=== PATIENT | male | born 1990 | race Caucasian/White ===

== ENCOUNTER 2017-10-31 16:49 | Inpatient (IN) | payer OTHER ==
[2017-10-31 18:04] VITALS: BMI 24.7
--- NOTE | 2017-10-31 19:19 | HP ---
COWS - Scale Resting Pulse: 2= [place] 101-120 Sweatin= Chills/Flushing Restless Observation: 1= Difficult to Sit Still Pupil Size: 1= Pupils >than Normal Bone or Joint Aches: 1= Mild Discomfort Runny Nose/ Eye Tearin= Runny Nose/Eyes GI Upset > 30mins: 1= Stomach Cramp Tremor Observation: 1= Tremor [place], Not Seen Yawning Observation: 1= 1-2x During Session Anxiety or Irritability: 2=Irritable/Anxious Goose Flesh Skin: 0=Smooth Skin COWS Score: 13 Admission [facility] Chief Complaint: opioid withdrawal symptoms Allergies/Adverse Reactions: Allergies Allergy/AdvReac Type Severity Reaction Status Date / Time Penicillins Allergy Mild Verified 10/31/17 18:45 History of Present Illness: 27 yo male with hx of nicotine and heroin dependence is here seeking detox. Last detox [facility] September 2015. Reports in April 2017 was diagnosed with lung cancer, patient underwent partial right lung removal on September 2017. Longest period of sobriety approximately 2 years. PMHX: lung CA, and depression. Denies suicidal / homicidal ideation or hx of suicide attempt. Denies hx of seizures, black outs or overdose. Exam Limitations: No Limitations - Ebola screening Have you traveled outside of the country in the last 21 days: No Have you had contact with anyone from an Ebola affected area: No Have you been sick,other than usual withdrawal symptoms: No Do you have a fever: No - Review of Systems Constitutional: Chills, Changes in sleep EENT: reports: No Symptoms Reported Respiratory: reports: No Symptoms reported Cardiac: reports: Chest Pain (Patient had surgery to lung rumor removal, psot surgical pain) GI: reports: Poor Fluid Intake, Abdominal cramping : reports: No Symptoms Reported Musculoskeletal: reports: Back Pain, Joint Pain Integumentary: reports: No Symptoms Reported Neuro: reports: No Symptoms reported Endocrine: reports: No Symptoms Reported Hematology: reports: No Symptoms Reported Psychiatric: reports: Orientated x3, Depressed Other Systems: Reviewed and Negative Patient History - Patient Medical History Hx Anemia: No Hx Asthma: No Hx Chronic Obstructive Pulmonary Disease (COPD): No Hx Cancer: Yes (right lung cancer with partial lung removal September 2017) Hx Cardiac Disorders: No Hx Congestive Heart Failure: No Hx Hypertension: No Hx Hypercholesterolemia: No Hx Pacemaker: No HX Cerebrovascular Accident: No Hx Seizures: No Hx Dementia: No Hx Diabetes: No Hx Gastrointestinal Disorders: Yes (Gerd) Hx Liver Disease: No Hx Genitourinary Disorders: No Hx Sexually Transmitted Disorders: No Hx Renal Disease (ESRD): No Hx Thyroid Disease: No Hx Human Immunodeficiency Virus (HIV): No (2015 negative, declines testing ) Hx Hepatitis C: No ( negative) Hx Depression: No Hx Suicide Attempt: No Hx Bipolar Disorder: No Hx Schizophrenia: No - Patient Surgical History Past Surgical History: No Hx Neurologic Surgery: No Hx Cataract Extraction: No Hx Cardiac Surgery: No Hx Lung Surgery: Yes Hx Breast Surgery: No Hx Breast Biopsy: No Hx Abdominal Surgery: No Hx Appendectomy: No Hx Cholecystectomy: No Hx Genitourinary Surgery: No Hx Orthopedic Surgery: No Anesthesia Reaction: No - PPD History Previous Implant?: Yes Documented Results: Negative w/o proof Date: 09/14/15 PPD to be Administered?: Yes - Smoking Cessation Smoking history: Current every day smoker Have you smoked in the past 12 months: No Aproximately how many cigarettes per day: 20 Hx Chewing Tobacco Use: No Initiated information on smoking cessation: Yes 'Breaking Loose' booklet given: 10/31/17 - Substance & Tx. History Hx Alcohol Use: Yes Hx Substance Use: Yes Substance Use Type: Heroin Hx Substance Use Treatment: Yes (Last detox [facility] September 2015) - Substances Abused Heroin Route: Inhalation Frequency: Daily Amount used: 15-20 Age of first use: 26 Date of Last Use: 10/31/17 Family Disease History - Family Disease History Family Disease History: Other: Father (alive and well ), Mother (alive and well ) Admission Physical Exam S - Vital Signs Vital Signs: Vital Signs - 24 hr 10/31/17 18:00 Pulse Rate 104 H Respiratory 18 Rate Blood Pressure 120/68 - Physical General Appearance: Yes: Appropriately Dressed, Mild Distress, Anxious HEENTM: Yes: EOMI, Hearing grossly Normal, Normal ENT Inspection, Normocephalic , Normal Voice, JAMEL Respiratory: Yes: Chest Non-Tender, Lungs Clear, Normal Breath Sounds, No Respiratory Distress, No Accessory Muscle Use Neck: Yes: No masses,lesions,Nodules, Trachea in good position Breast: Yes: Breast Exam Deferred Cardiology: Yes: Regular Rhythm, Regular Rate Abdominal: Yes: Normal Bowel Sounds, Non Tender, Flat, Soft Genitourinary: Yes: Within Normal Limits Back: Yes: Normal Inspection Musculoskeletal: Yes: full range of Motion, Gait Steady, Pelvis Stable, Other ( midternal pain) Extremities: Yes: Normal Capillary Refill, Normal Inspection, Normal Range of Motion, Non-Tender 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, Fully Oriented, Alert, Motor Strength 5/5, Depressed Affect Integumentary: Yes: Normal Color, Warm, Moist Lymphatic: Yes: Within Normal Limits - Diagnostic (1) Lung cancer Current Visit: Yes Status: Acute Qualifiers: Laterality: right Lung location: unspecified part of lung Qualified Code( s): C34.91 - Malignant neoplasm of unspecified part of right bronchus or lung (2) Depressed mood Current Visit: Yes Status: Acute (3) Opioid dependence with withdrawal Current Visit: Yes Status: Acute (4) Nicotine dependence Current Visit: Yes Status: Chronic Qualifiers: Nicotine product type: cigarettes Substance use status: uncomplicated Qualified Code(s): F17.210 - Nicotine dependence, cigarettes, uncomplicated Cleared for Admission [facility] - Detox or Rehab [facility] Level of Care: Medically Managed Detox Regimen/Protocol: Methadone [facility] Breath Alcohol Content Breath Alcohol Content: 0 Urine Drug Screen - Results Drug Screen Negative: No Urine Drug Screen Results: OPI-Opiates, OXY-Oxycodone
[2017-10-31] MEDS ORDERED: ACETAMINOPHEN 325 MG TABLET (FP) PO PRN (19:21)
[2017-10-31] MEDS ORDERED: IBUPROFEN 400 MG TABLET (FP) PO PRN (19:21)
[2017-10-31] MEDS ORDERED: NICOTINE POLACRILEX 2 MG GUM BC PRN (19:21)
[2017-10-31] MEDS ORDERED: MENTHOL/PHENOL 1 EACH UD MM PRN (19:21)
[2017-10-31] MEDS ORDERED: MAG HYDROX/AL HYDROX/SIMETH 30 ML UNIT-DOSE CUP PO PRN (19:21)
[2017-10-31] MEDS ORDERED: guaiFENesin/D-METHORPHAN HB 10 ML UNIT-DOSE CUPS PO PRN (19:21)
[2017-10-31] MEDS ORDERED: LOPERAMIDE HCL 2 MG CAPSULE PO PRN (19:21)
[2017-10-31] MEDS ORDERED: MAGNESIUM HYDROX 2400MG/30ML ORAL SUSPENSION 30 ML CUP PO PRN (19:21)
[2017-10-31] MEDS ORDERED: MAGNESIUM CITRATE 300 ML BOTTLE PO PRN (19:21)
[2017-10-31] MEDS ORDERED: P-EPHED 60MG/TRIPROLIDI 2.5MG TABLET PO PRN (19:21)
--- NOTE | 2017-10-31 21:25 | PN ---
S Progress Note Note: As per patient he was told by his doctor he can not receive PPD test. Chest xray ordered in the AM for TB screen.
[2017-10-31] MEDS ORDERED: METHADONE HCL 10 MG TABLET (FOR DETOX USE ONLY) PO ONE ×2 (21:32→23:00)
[2017-10-31] MEDS: diazePAM 5 MG TABLET PO PRN (21:39)
[2017-10-31] MEDS ORDERED: MELATONIN 5 MG TABLETS PO PRN (22:00)
[2017-10-31] MEDS: THIAMINE HCL 100 MG TABLET (FP) PO SCH (22:17)
--- NOTE | 2017-11-01 09:02 | EKG ---
Test Reason : Blood Pressure : / mmHG Vent. Rate : 096 BPM Atrial Rate : 096 BPM P-R Int : 132 ms QRS Dur : 096 ms QT Int : 346 ms P-R-T Axes : 037 020 -37 degrees QTc Int : 437 ms NORMAL SINUS RHYTHM RSR' OR QR PATTERN IN V1 SUGGESTS RIGHT VENTRICULAR CONDUCTION DELAY T WAVE ABNORMALITY, CONSIDER INFERIOR ISCHEMIA T WAVE ABNORMALITY, CONSIDER ANTEROLATERAL ISCHEMIA ABNORMAL ECG NO PREVIOUS ECGS AVAILABLE Confirmed by LONG GUILLEN MD ([id number]) on 11/01/2017 9:01:53 AM Referred By: Confirmed By:LONG GUILLEN MD
[2017-11-01 09:42] LABS: HEMATOCRIT 37.1 % (35.4-49); HEMOGLOBIN 12.1 GM/dL (11.7-16.9); MCH 30.3 pg (25.7-33.7); MCHC 32.6 g/dl (32.0-35.9); MEAN CELL VOLUME 92.8 fl (80-96); MEAN PLT VOLUME 7.6 fl (7.5-11.1); PLATELET COUNT 348 K/MM3 (134-434); RDW 14.4 % (11.9-15.9); WHITE BLOOD COUNT 5.9 K/mm3 (4.0-10.0)
[2017-11-01] MEDS ORDERED: METHADONE HCL 10 MG TABLET (FOR DETOX USE ONLY) PO ONE (10:00)
[2017-11-01 10:20] LABS: ALBUMIN 3.8 g/dl (3.4-5.0); ANION GAP 9 (8-16); BILIRUBIN,TOTAL 0.3 mg/dL (0.2-1.0); BLOOD UREA NITROGEN 17 mg/dL (7-18); CALCIUM 9.3 mg/dL (8.5-10.1); CHLORIDE 103 mmol/L (98-107); CO2 29 mmol/L (21-32); CREATININE 1.1 mg/dL (0.7-1.3); GLUCOSE,RANDOM 88 mg/dL (74-106); POTASSIUM 4.3 mmol/L (3.5-5.1); SGOT/AST 12 U/L (15-37); SGPT/ALT 24 U/L (12-78); SODIUM 141 mmol/L (136-145); TOT PROT 6.8 g/dl (6.4-8.2)
[2017-11-01 10:21] LABS: ALK PHOS 99 U/L (45-117)
[2017-11-01] MEDS: PRENATAL VITAMINS W/ FOLIC ACID TABLET (FP) PO SCH (10:56)
[2017-11-01] MEDS: NICOTINE 14 MG/24 HOURS TOPICAL PATCH TD SCH (10:57)
[2017-11-01] MEDS: diazePAM 5 MG TABLET PO PRN ×3 (10:58→22:19)
--- NOTE | 2017-11-01 11:04 | PN ---
[facility] COWS - Scale Resting Pulse: 1= [place] 81-100 Sweatin= Chills/Flushing Restless Observation: 3= Extraneous Movement Pupil Size: 2= Moderately Dilated Bone or Joint Aches: 4=Acute Joint/Muscle Pain Runny Nose/ Eye Tearin= None GI Upset > 30mins: 0= None Tremor Observation of Outstretched Hands: 2= Slight Tremor Visible Yawning Observation: 1= 1-2x During Session Anxiety or Irritability: 1=Feels Anxious/Irritable Goose Flesh Skin: 0=Smooth Skin COWS Score: 15 BHS Progress Note (SOAP) Subjective: ANXIETY,SWEATS, MUSCLE ACHES, FATIGUE, LOSS OF APPETITE. Objective: 11/01/17 11:03 Vital Signs 11/01/17 11/01/17 03:30 06:00 Temperature 97.5 F L Pulse Rate 83 Respiratory 18 18 Rate Blood Pressure 93/50 Laboratory Tests 11/01/17 11/01/17 07:00 07:00 WBC 5.9 RBC 4.00 Hgb 12.1 Hct 37.1 MCV 92.8 MCH 30.3 MCHC 32.6 RDW 14.4 Plt Count 348 D MPV 7.6 Sodium 141 Potassium 4.3 Chloride 103 Carbon Dioxide 29 Anion Gap 9 BUN 17 Creatinine 1.1 D Creat Clearance w eGFR > 60 Random Glucose 88 Calcium 9.3 Total Bilirubin 0.3 D AST 12 L D ALT 24 D Alkaline Phosphatase 99 D Total Protein 6.8 Albumin 3.8 OTHER LABS PENDING Assessment: 11/01/17 11:03 WITHDRAWAL SX Plan: CONTINUE DETOX
--- NOTE | 2017-11-01 13:48 | CONSULT ---
[facility] Psychiatric Consult - Data Date of interview: 11/01/17 Admission source: Self-referred Identifying data: Mr Goss is a 27 years old single male, unemployed on SSD, domiciled seeking detox treatment for opioid Substance Abuse History: Reports history of heroin use. Refer to addiction counselor's summary for more information Medical History: Significant for GERD and history of surgery for removal of 25 percent of his right lung due cancer in August 2017. Smokes cigarettes 1 ppd Psychiatric History: Denies history of previous psychiatric treatment. However, reports feeling depressed at present Physical/Sexual Abuse/Trauma History: Denies history of emotional, physical or sexual abuse as well as DV relationship Additional Comment: Denies criminal history Mental Status Exam - Mental Status Exam Alert and Oriented to: Time, Place, Person Cognitive Function: Fair Patient Appearance: Well Groomed Mood: Depressed Affect: Constricted Patient Behavior: Cooperative Speech Pattern: Clear Voice Loudness: Normal Thought Process: Intact, Goal Oriented Thought Disorder: Not Present Hallucinations: Denies Suicidal Ideation: Denies Homicidal Ideation: Denies Insight/Judgement: Fair Sleep: Fair Appetite: Fair Muscle strength/Tone: Normal Gait/Station: Normal Psychiatric Findings - Problem List ([place] 1, 2,3) (1) Substance induced mood disorder Current Visit: Yes Status: Acute (2) Opioid dependence with withdrawal Current Visit: Yes Status: Acute (3) Nicotine dependence Current Visit: Yes Status: Chronic Qualifiers: Nicotine product type: cigarettes Substance use status: in withdrawal Qualified Code(s): F17.213 - Nicotine dependence, cigarettes, with withdrawal (4) GERD (gastroesophageal reflux disease) Current Visit: Yes Status: Acute (5) History of lung surgery Current Visit: Yes Status: Chronic (6) Lung cancer Current Visit: Yes Status: Chronic Qualifiers: Laterality: right Lung location: unspecified part of lung Qualified Code( s): C34.91 - Malignant neoplasm of unspecified part of right bronchus or lung - Initial Treatment Plan Initial Treatment Plan: Continue inpatient detoxification
[2017-11-01] MEDS: THIAMINE HCL 100 MG TABLET (FP) PO SCH (22:18)
[2017-11-02] MEDS: diazePAM 5 MG TABLET PO PRN ×3 (05:51→17:19)
[2017-11-02] MEDS ORDERED: METHADONE HCL 5 MG TABLET (FOR DETOX USE ONLY) PO ONE (10:00)
[2017-11-02] MEDS: PRENATAL VITAMINS W/ FOLIC ACID TABLET (FP) PO SCH (10:09)
[2017-11-02] MEDS: NICOTINE 14 MG/24 HOURS TOPICAL PATCH TD SCH (10:09)
--- NOTE | 2017-11-02 12:18 | PN ---
[facility] COWS - Scale Resting Pulse: 0= HI 80 or Below Sweatin= Chills/Flushing Restless Observation: 3= Extraneous Movement Pupil Size: 0= Normal to Room Light Bone or Joint Aches: 2= Severe Diffuse Aches Runny Nose/ Eye Tearin= Runny Nose/Eyes GI Upset > 30mins: 2= Nausea/Diarrhea Tremor Observation of Outstretched Hands: 2= Slight Tremor Visible Yawning Observation: 0= None Anxiety or Irritability: 2=Irritable/Anxious Goose Flesh Skin: 3=Piloerection COWS Score: 17 BHS Progress Note (SOAP) Subjective: Tremors, sweats, joint pain, irritability and sleep interruption Objective: 11/02/17 12:17 Vital Signs 11/02/17 11/02/17 06:46 10:37 Temperature 98.1 F 97.7 F Pulse Rate 70 100 H Respiratory 18 20 Rate Blood Pressure 106/62 117/73 Laboratory Last Values WBC 5.9 K/mm3 (4.0-10.0) 11/01/17 07:00 RBC 4.00 M/mm3 (4.00-5.60) 11/01/17 07:00 Hgb 12.1 GM/dL (11.7-16.9) 11/01/17 07:00 Hct 37.1 % (35.4-49) 11/01/17 07:00 MCV 92.8 fl (80-96) 11/01/17 07:00 MCH 30.3 pg (25.7-33.7) 11/01/17 07:00 MCHC 32.6 g/dl (32.0-35.9) 11/01/17 07:00 RDW 14.4 % (11.9-15.9) 11/01/17 07:00 Plt Count 348 K/MM3 (134-434) D 11/01/17 07:00 MPV 7.6 fl (7.5-11.1) 11/01/17 07:00 Sodium 141 mmol/L (136-145) 11/01/17 07:00 Potassium 4.3 mmol/L (3.5-5.1) 11/01/17 07:00 Chloride 103 mmol/L (98-107) 11/01/17 07:00 Carbon Dioxide 29 mmol/L (21-32) 11/01/17 07:00 Anion Gap 9 (8-16) 11/01/17 07:00 BUN 17 mg/dL (7-18) 11/01/17 07:00 Creatinine 1.1 mg/dL (0.7-1.3) D 11/01/17 07:00 Creat Clearance w eGFR > 60 (>60) 11/01/17 07:00 Random Glucose 88 mg/dL (74-106) 11/01/17 07:00 Calcium 9.3 mg/dL (8.5-10.1) 11/01/17 07:00 Total Bilirubin 0.3 mg/dL (0.2-1.0) D 11/01/17 07:00 AST 12 U/L (15-37) L D 11/01/17 07:00 ALT 24 U/L (12-78) D 11/01/17 07:00 Alkaline Phosphatase 99 U/L (45-117) D 11/01/17 07:00 Total Protein 6.8 g/dl (6.4-8.2) 11/01/17 07:00 Albumin 3.8 g/dl (3.4-5.0) 11/01/17 07:00 RPR Titer Nonreactive (NONREACTIVE) 11/01/17 07:00 Labs noted Assessment: 11/02/17 12:17 Withdrawal sx Plan: Continue detox
[2017-11-02] MEDS: THIAMINE HCL 100 MG TABLET (FP) PO SCH (22:54)
[2017-11-03] MEDS ORDERED: METHADONE HCL 5 MG TABLET (FOR DETOX USE ONLY) PO ONE (10:00)
[2017-11-03] MEDS: NICOTINE 14 MG/24 HOURS TOPICAL PATCH TD SCH (10:12)
[2017-11-03] MEDS: PRENATAL VITAMINS W/ FOLIC ACID TABLET (FP) PO SCH (10:12)
[2017-11-03] MEDS: diazePAM 5 MG TABLET PO PRN ×2 (10:12→14:00)
--- NOTE | 2017-11-03 13:38 | PN ---
S Progress Note (SOAP) Subjective: JOINTS PAIN BODY ACHE TREMOR SWEAT IRRITABLE Objective: 11/03/17 13:39 Vital Signs Temperature 97.3 F L 11/03/17 13:19 Pulse Rate 107 H 11/03/17 13:19 Respiratory Rate 20 11/03/17 13:19 Blood Pressure 114/72 11/03/17 13:19 O2 Sat by Pulse Oximetry (%) Laboratory Last Values WBC 5.9 K/mm3 (4.0-10.0) 11/01/17 07:00 RBC 4.00 M/mm3 (4.00-5.60) 11/01/17 07:00 Hgb 12.1 GM/dL (11.7-16.9) 11/01/17 07:00 Hct 37.1 % (35.4-49) 11/01/17 07:00 MCV 92.8 fl (80-96) 11/01/17 07:00 MCH 30.3 pg (25.7-33.7) 11/01/17 07:00 MCHC 32.6 g/dl (32.0-35.9) 11/01/17 07:00 RDW 14.4 % (11.9-15.9) 11/01/17 07:00 Plt Count 348 K/MM3 (134-434) D 11/01/17 07:00 MPV 7.6 fl (7.5-11.1) 11/01/17 07:00 Sodium 141 mmol/L (136-145) 11/01/17 07:00 Potassium 4.3 mmol/L (3.5-5.1) 11/01/17 07:00 Chloride 103 mmol/L (98-107) 11/01/17 07:00 Carbon Dioxide 29 mmol/L (21-32) 11/01/17 07:00 Anion Gap 9 (8-16) 11/01/17 07:00 BUN 17 mg/dL (7-18) 11/01/17 07:00 Creatinine 1.1 mg/dL (0.7-1.3) D 11/01/17 07:00 Creat Clearance w eGFR > 60 (>60) 11/01/17 07:00 Random Glucose 88 mg/dL (74-106) 11/01/17 07:00 Calcium 9.3 mg/dL (8.5-10.1) 11/01/17 07:00 Total Bilirubin 0.3 mg/dL (0.2-1.0) D 11/01/17 07:00 AST 12 U/L (15-37) L D 11/01/17 07:00 ALT 24 U/L (12-78) D 11/01/17 07:00 Alkaline Phosphatase 99 U/L (45-117) D 11/01/17 07:00 Total Protein 6.8 g/dl (6.4-8.2) 11/01/17 07:00 Albumin 3.8 g/dl (3.4-5.0) 11/01/17 07:00 RPR Titer Nonreactive (NONREACTIVE) 11/01/17 07:00 LAB NOTED Assessment: 11/03/17 13:39 WITHDRAWAL SX Plan: CONTINUE DETOX
[2017-11-04 08:32] VITALS: BP 91/55; PULSE 65; TEMP 97.3
[2017-11-04] MEDS: THIAMINE HCL 100 MG TABLET (FP) PO SCH (08:33)
[2017-11-04] MEDS: PRENATAL VITAMINS W/ FOLIC ACID TABLET (FP) PO SCH (09:56)
[2017-11-04] MEDS ORDERED: METHADONE HCL 10 MG TABLET (FOR DETOX USE ONLY) PO ONE (10:00)
--- NOTE | 2017-11-04 10:04 | DS ---
[facility] Detox Discharge Summary Admission Date: 10/31/17 Discharge Date: 11/04/17 - History Present History: Opioid Dependence Additional Comments: 27 years old male admitted 10/31/17 for opiate withdrawal sx stated feeling better with mild opiate withdrawal sx that less joint and body aches alert oriented x 3 no acute distress has chemotherapy 11/05/17 8 am patient agrees follow up with primary care provider and specialists for medical and psychosocial issues also attend community self support group and meeting for addiction longest sobriety 11 months and patient has sponsor - Physical Exam Results Vital Signs: Vital Signs Temperature 97.3 F L 11/04/17 08:31 Pulse Rate 65 11/04/17 08:31 Respiratory Rate 18 11/04/17 08:31 Blood Pressure 91/55 11/04/17 08:31 O2 Sat by Pulse Oximetry (%) Pertinent Admission Physical Exam Findings: opiate withdrawal sx Vital Signs Temperature 97.3 F L 11/04/17 08:31 Pulse Rate 65 11/04/17 08:31 Respiratory Rate 18 11/04/17 08:31 Blood Pressure 91/55 11/04/17 08:31 O2 Sat by Pulse Oximetry (%) Laboratory Last Values WBC 5.9 K/mm3 (4.0-10.0) 11/01/17 07:00 RBC 4.00 M/mm3 (4.00-5.60) 11/01/17 07:00 Hgb 12.1 GM/dL (11.7-16.9) 11/01/17 07:00 Hct 37.1 % (35.4-49) 11/01/17 07:00 MCV 92.8 fl (80-96) 11/01/17 07:00 MCH 30.3 pg (25.7-33.7) 11/01/17 07:00 MCHC 32.6 g/dl (32.0-35.9) 11/01/17 07:00 RDW 14.4 % (11.9-15.9) 11/01/17 07:00 Plt Count 348 K/MM3 (134-434) D 11/01/17 07:00 MPV 7.6 fl (7.5-11.1) 11/01/17 07:00 Sodium 141 mmol/L (136-145) 11/01/17 07:00 Potassium 4.3 mmol/L (3.5-5.1) 11/01/17 07:00 Chloride 103 mmol/L (98-107) 11/01/17 07:00 Carbon Dioxide 29 mmol/L (21-32) 11/01/17 07:00 Anion Gap 9 (8-16) 11/01/17 07:00 BUN 17 mg/dL (7-18) 11/01/17 07:00 Creatinine 1.1 mg/dL (0.7-1.3) D 11/01/17 07:00 Creat Clearance w eGFR > 60 (>60) 11/01/17 07:00 Random Glucose 88 mg/dL (74-106) 11/01/17 07:00 Calcium 9.3 mg/dL (8.5-10.1) 11/01/17 07:00 Total Bilirubin 0.3 mg/dL (0.2-1.0) D 11/01/17 07:00 AST 12 U/L (15-37) L D 11/01/17 07:00 ALT 24 U/L (12-78) D 11/01/17 07:00 Alkaline Phosphatase 99 U/L (45-117) D 11/01/17 07:00 Total Protein 6.8 g/dl (6.4-8.2) 11/01/17 07:00 Albumin 3.8 g/dl (3.4-5.0) 11/01/17 07:00 RPR Titer Nonreactive (NONREACTIVE) 11/01/17 07:00 lab noted - Treatment Hospital Course: Detox Protocol Followed, Detoxed Safely, Responded well, Discharged Condition Good, Rehab Referral Accepted Patient has Accepted a Rehab Referral to: [facility] support - Medication Discharge Medications: Ambulatory Orders NK [No Known Home Medication] 09/12/15 - Diagnosis (1) GERD (gastroesophageal reflux disease) Current Visit: Yes Status: Chronic Qualifiers: Esophagitis presence: without esophagitis Qualified Code(s): K21.9 - Gastro -esophageal reflux disease without esophagitis (2) Opioid dependence with withdrawal Current Visit: Yes Status: Acute (3) Lung cancer Current Visit: Yes Status: Chronic Qualifiers: Laterality: right Lung location: unspecified part of lung Qualified Code( s): C34.91 - Malignant neoplasm of unspecified part of right bronchus or lung (4) Nicotine dependence Current Visit: Yes Status: Acute Qualifiers: Nicotine product type: cigarettes Substance use status: in withdrawal Qualified Code(s): F17.213 - Nicotine dependence, cigarettes, with withdrawal - AMA Did Patient Leave Against Medical Advice: No
--- NOTE | 2017-11-04 22:14 | EKG ---
Test Reason : Blood Pressure : / mmHG Vent. Rate : 078 BPM Atrial Rate : 078 BPM P-R Int : 140 ms QRS Dur : 094 ms QT Int : 398 ms P-R-T Axes : 051 038 008 degrees QTc Int : 453 ms NORMAL SINUS RHYTHM T WAVE ABNORMALITY, CONSIDER INFERIOR ISCHEMIA ABNORMAL ECG WHEN COMPARED WITH ECG OF 31-OCT-2017 21:13, NO SIGNIFICANT CHANGE WAS FOUND Confirmed by SENA LERNER MD ([id number]) on 11/04/2017 10:13:54 PM Referred By: Confirmed By:SENA LERNER MD
[2017-11-05] MEDS ORDERED: METHADONE HCL 5 MG TABLET (FOR DETOX USE ONLY) PO ONE (06:00)
== END 2017-11-04 10:10 | disposition home or self-care (01) | DRG 773 ==
LOC: YASAS 16:49 → Y6N 18:39
PROVIDERS: ADMIT Family Medicine Addiction Medicine; ATTEND Family Medicine Addiction Medicine
PROC: HZ2ZZZZ Detoxification Services for Substance Abuse Treatment (ICD-10-PCS; principal; 2017-10-31)
DX: F11.23 Opioid dependence with withdrawal (principal); F17.213 Nicotine dependence, cigarettes, with withdrawal; F41.8 Other specified anxiety disorders; F19.24 Other psychoactive substance dependence with psychoactive substance-induced mood disorder; K21.9 Gastro-esophageal reflux disease without esophagitis; Z85.118 Personal history of other malignant neoplasm of bronchus and lung; Z90.2 Acquired absence of lung [part of]; Z88.0 Allergy status to penicillin
CPT/HCPCS: 36415; 71046-TC-FY; 80053; 85027; 86593; 93005; 93010